=== PATIENT | male | born 1995 | race Caucasian/White ===

== ENCOUNTER 2017-11-24 15:58 | Emergency (ER) | payer OTHER ==
[2015-10-22 12:53] VITALS: Wt 72.6 kg
[~2017-11-24 15:58] MED LIST: CEP125L PO; FEXO1TAB60 PO; FLUO-202 PO; HYDR-4309 PO; IBUP-56 PO; LOR5 PO; LOR5/325 PO; MULT-1379 PO; TRAM-420 PO; TRAZ150T8 PO
--- NOTE | 2017-11-24 16:08 | ER Report ---
History and Physical Time Seen By MD: 16:08 Hx. of Stated Complaint: PT REPORTS SEVERE LLQ PAIN STARTING THIS MORNING, SPITTING UP MOUTHFULS OF BLOOD HPI/ROS CHIEF COMPLAINT: Hematemesis, left upper quadrant abdominal pain which started today HISTORY OF PRESENT ILLNESS: Patient is a 22-year-old male here with complaints of left upper and middle quadrant abdominal pain for the past as well as several episodes of hematemesis described as "mouthfuls of blood". Patient denies prior history of hematemesis, abdominal pain, nausea, vomiting. He denies taking other medications at this time and he also denies other medical problems. He does admit to having a hiatal hernia. Patient reports severe pain in the left upper quadrant abdomen. He is afebrile at time of evaluation, hemodynamically stable. REVIEW OF SYSTEMS: Constitutional: No fever, no chills. Eyes: No discharge. ENT: No sore throat. Cardiovascular: No chest pain, no palpitations. Respiratory: No cough, no shortness of breath. Gastrointestinal:+ left upper abdominal pain, + hematemesis. Genitourinary: No hematuria. Musculoskeletal: No back pain. Skin: No rashes. Neurological: No headache. Allergies: Coded Allergies: methylphenidate (Verified Allergy, Intermediate, NAUSEA, 07/23/16) Uncoded Allergies: SEASONAL ALLERGIES (Allergy, Mild, SINUS CONGESTION, 07/24/16) Home Meds Active Scripts Tramadol Hcl (TRAMADOL HCL) 50 Mg Tablet, 50 MG PO Q6H Y for PAIN, #12 TAB 0 Refills Prov:BIN MELÉNDEZ DO 11/24/17 Ondansetron (ZOFRAN ODT) 4 Mg Tab.rapdis, 4 MG PO Q6H Y for NAUSEA/VOMITING, # 20 TAB.[place] 0 Refills Prov:MELÉNDEZBIN S DO 18 Ondansetron (ONDANSETRON ODT) 4 Mg Tab.rapdis, 4 MG PO Q12H for 7 Days, #20 TAB Prov:BIN MELÉNDEZ S DO 18 Sucralfate (SUCRALFATE) 1 Gm Tablet, 1 GM PO Q6H for Nausea for 7 Days, #28 TAB Prov:BIN MELÉNDEZ S DO 18 Omeprazole Magnesium (PRILOSEC OTC) 20 Mg Tablet.dr, 1 TAB PO QDAY for 30 Days, #30 TAB Prov:BIN MELÉNDEZ DO 11/24/17 Tramadol Hcl (TRAMADOL HCL) 50 Mg Tablet, 1 TAB PO Q6H Y for PAIN, #20 MG TAKE ONE TO TWO TABLETS BY MOUTH EVERY FOUR TO SIX HOURS NEEDED Prov:ZACHERY HOBBS DO 07/23/16 Reported Medications Fexofenadine/Pseudoephedrine (DYLLAN-D 12 HOUR TABLET) 1 Each Tab.er.12h, 1 TAB PO BID Y for CONGESTION 07/24/16 Ibuprofen (IBUPROFEN) 200 Mg Tablet, 2 TAB PO PRN, TAB 07/24/16 Hx Smoking: No Smoking Status: Former Smoker Exposure to Second Hand Smoke?: No Hx Substance Use Disorder: Yes (weed) Hx Alcohol Use: Yes Constitutional Vital Sign - Last 24 Hours 11/24/17 11/24/17 11/24/17 11/24/17 15:58 16:03 16:04 16:13 Temp 98.4 Pulse ??? 95 88 Resp 16 B/P (MAP) 122/72 (89) 122/72 Pulse Ox 94 96 O2 Delivery Room Air 11/24/17 11/24/17 11/24/17 11/24/17 16:28 16:30 16:43 16:58 Pulse 87 87 ??? B/P (MAP) 114/71 (85) Pulse Ox 96 92 11/24/17 11/24/17 11/24/17 11/24/17 17:13 17:18 17:19 17:30 Pulse 67 65 B/P (MAP) 117/64 (81) 122/87 (99) Pulse Ox 99 100 11/24/17 11/24/17 17:33 17:48 Pulse 79 83 Pulse Ox 95 96 Physical Exam General Appearance: The patient is alert, has no immediate need for airway protection and no signs of toxicity. + moderate distress secondary to pain Eyes: Pupils equal and round no pallor or injection. ENT, Mouth: Mucous membranes are moist. Respiratory: There are no retractions, lungs are clear to auscultation. Cardiovascular: Regular rate and rhythm. Gastrointestinal: + TTP LUQ, voluntary guarding without distension, no masses Neurological: No focal deficits Skin: Warm and dry, no rashes. Musculoskeletal: Neck is supple non tender. Extremities are nontender, nonswollen and have full range of motion. DIFFERENTIAL DIAGNOSIS: After history and physical exam differential diagnosis was considered for abdominal pain including but not limited to appendicitis, cholecystitis, gastritis and urinary tract infection. Medical Decision Making Data Points Result Diagram: 11/24/17 1625 11/24/17 1625 Laboratory Hematology Test 11/24/17 16:25 11/24/17 17:29 Red Blood Count 5.17 M/uL (4.00-5.60) Mean Corpuscular Volume 88.4 fL (80.0-96.0) Mean Corpuscular Hemoglobin 31.4 pg (26.0-33.0) Mean Corpuscular Hemoglobin Concent 35.5 g/dL (32.0-36.0) Red Cell Distribution Width 13.3 % (11.5-14.5) Mean Platelet Volume 8.2 fL (7.2-11.1) Neutrophils (%) (Auto) 50.9 % (39.4-72.5) Lymphocytes (%) (Auto) 26.9 % (17.6-49.6) Monocytes (%) (Auto) 9.9 % (4.1-12.4) Eosinophils (%) (Auto) 11.3 % (0.4-6.7) Basophils (%) (Auto) 1.0 % (0.3-1.4) Nucleated RBC Relative Count (auto) 0.0 /100WBC Neutrophils # (Auto) 4.0 K/uL (2.0-7.4) Lymphocytes # (Auto) 2.1 K/uL (1.3-3.6) Monocytes # (Auto) 0.8 K/uL (0.3-1.0) Eosinophils # (Auto) 0.9 K/uL (0.0-0.5) Basophils # (Auto) 0.1 K/uL (0.0-0.1) Nucleated RBC Absolute Count (auto) 0.00 K/uL Peripheral Blood Smear Yes Y/N Prothrombin Time 14.1 seconds (12.0-14.4) Prothromb Time International Ratio 1.08 Activated Partial Thromboplast Time 29 seconds (23-35) Sodium Level 139 mmol/L (137-145) Potassium Level 3.5 mmol/L (3.5-5.0) Chloride Level 102 mmol/L (98-107) Carbon Dioxide Level 25 mmol/L (22-30) Blood Urea Nitrogen 15 mg/dl (9-21) Creatinine 1.10 mg/dl (0.66-1.25) Glomerular Filtration Rate Calc > 60.0 Random Glucose 86 mg/dl (75-110) Calcium Level 9.1 mg/dl (8.4-10.2) Total Bilirubin 0.9 mg/dl (0.2-1.3) Aspartate Amino Transf (AST/SGOT) 24 U/L (0-35) Alanine Aminotransferase (ALT/SGPT) 25 U/L (0-56) Alkaline Phosphatase 86 U/L (0-126) Total Protein 7.2 g/dl (6.3-8.2) Albumin 4.2 g/dl (3.5-5.0) Lipase 39 U/L (23-300) Urine Color Yellow Urine Clarity Clear Urine pH 6.0 pH (4.8-9.5) Urine Specific [place] 1.029 Urine Protein Negative mg/dL (NEGATIVE) Urine Glucose (UA) Negative mg/dL (NEGATIVE) Urine Ketones Negative mg/dL (NEGATIVE) Urine Blood Negative (NEGATIVE) Urine Nitrite Negative (NEGATIVE) Urine Bilirubin Negative (NEGATIVE) Urine Urobilinogen 2.0 mg/dL (0.2-1.9) Urine Leukocyte Esterase Negative (NEGATIVE) Urine RBC None /HPF (0-2/HPF) Urine WBC None /HPF (0-5/HPF) Urine Squamous Epithelial Cells Few /LPF (</=FEW) Urine Bacteria Negative /HPF (NONE-FEW) Urine Mucus Few /HPF (NONE-FEW) Chemistry Test 11/24/17 16:25 11/24/17 17:29 White Blood Count 7.8 k/uL (4.5-11.0) Red Blood Count 5.17 M/uL (4.00-5.60) Hemoglobin 16.2 g/dL (14.0-18.0) Hematocrit 45.7 % (42.0-52.0) Mean Corpuscular Volume 88.4 fL (80.0-96.0) Mean Corpuscular Hemoglobin 31.4 pg (26.0-33.0) Mean Corpuscular Hemoglobin Concent 35.5 g/dL (32.0-36.0) Red Cell Distribution Width 13.3 % (11.5-14.5) Platelet Count 204 K/uL (150-450) Mean Platelet Volume 8.2 fL (7.2-11.1) Neutrophils (%) (Auto) 50.9 % (39.4-72.5) Lymphocytes (%) (Auto) 26.9 % (17.6-49.6) Monocytes (%) (Auto) 9.9 % (4.1-12.4) Eosinophils (%) (Auto) 11.3 % (0.4-6.7) Basophils (%) (Auto) 1.0 % (0.3-1.4) Nucleated RBC Relative Count (auto) 0.0 /100WBC Neutrophils # (Auto) 4.0 K/uL (2.0-7.4) Lymphocytes # (Auto) 2.1 K/uL (1.3-3.6) Monocytes # (Auto) 0.8 K/uL (0.3-1.0) Eosinophils # (Auto) 0.9 K/uL (0.0-0.5) Basophils # (Auto) 0.1 K/uL (0.0-0.1) Nucleated RBC Absolute Count (auto) 0.00 K/uL Peripheral Blood Smear Yes Y/N Prothrombin Time 14.1 seconds (12.0-14.4) Prothromb Time International Ratio 1.08 Activated Partial Thromboplast Time 29 seconds (23-35) Glomerular Filtration Rate Calc > 60.0 Calcium Level 9.1 mg/dl (8.4-10.2) Total Bilirubin 0.9 mg/dl (0.2-1.3) Aspartate Amino Transf (AST/SGOT) 24 U/L (0-35) Alanine Aminotransferase (ALT/SGPT) 25 U/L (0-56) Alkaline Phosphatase 86 U/L (0-126) Total Protein 7.2 g/dl (6.3-8.2) Albumin 4.2 g/dl (3.5-5.0) Lipase 39 U/L (23-300) Urine Color Yellow Urine Clarity Clear Urine pH 6.0 pH (4.8-9.5) Urine Specific [place] 1.029 Urine Protein Negative mg/dL (NEGATIVE) Urine Glucose (UA) Negative mg/dL (NEGATIVE) Urine Ketones Negative mg/dL (NEGATIVE) Urine Blood Negative (NEGATIVE) Urine Nitrite Negative (NEGATIVE) Urine Bilirubin Negative (NEGATIVE) Urine Urobilinogen 2.0 mg/dL (0.2-1.9) Urine Leukocyte Esterase Negative (NEGATIVE) Urine RBC None /HPF (0-2/HPF) Urine WBC None /HPF (0-5/HPF) Urine Squamous Epithelial Cells Few /LPF (</=FEW) Urine Bacteria Negative /HPF (NONE-FEW) Urine Mucus Few /HPF (NONE-FEW) Coagulation Test 11/24/17 16:25 Prothrombin Time 14.1 seconds Prothromb Time International Ratio 1.08 Activated Partial Thromboplast Time 29 seconds Urinalysis Test 11/24/17 17:29 Urine Color Yellow Urine Clarity Clear Urine pH 6.0 pH (4.8-9.5) Urine Specific [place] 1.029 Urine Protein Negative mg/dL (NEGATIVE) Urine Glucose (UA) Negative mg/dL (NEGATIVE) Urine Ketones Negative mg/dL (NEGATIVE) Urine Blood Negative (NEGATIVE) Urine Nitrite Negative (NEGATIVE) Urine Bilirubin Negative (NEGATIVE) Urine Urobilinogen 2.0 mg/dL (0.2-1.9) Urine Leukocyte Esterase Negative (NEGATIVE) Urine RBC None /HPF (0-2/HPF) Urine WBC None /HPF (0-5/HPF) Urine Squamous Epithelial Cells Few /LPF (</=FEW) Urine Bacteria Negative /HPF (NONE-FEW) Urine Mucus Few /HPF (NONE-FEW) EKG/Imaging Imaging ACUTE ABDOMEN SERIES 3 VIEW Indication: ABD PAIN Comparison: Chest x-ray 03/28/2016 Findings: CHEST: Lungs are clear. Heart size and pulmonary vasculature are normal. ABDOMEN: Normal bowel gas pattern is seen. Silhouette of the liver spleen and kidneys are normal. Bones are unremarkable. Benign defect in the posterior elements of L5 is seen. IMPRESSION: 1. Clear lungs. 2. Normal abdomen radiograph. ED Course/Re-evaluation ED Course Patient is a 22-year-old male here with complaints of hematemesis, upper abdominal pain in the setting of a hiatal hernia.. He reportedly had an endoscopy over a year ago however developed worse abdominal pain starting within the last 24 hours and scant bleeding in his mouth. H&H were stable. Coag panel was unremarkable. Electrolytes and kidney function, lipase and liver function tests were unremarkable. Acute abdomen x-ray series showed no acute free air in the abdomen under the diaphragm making perforation less likely. Patient was treated with analgesia as well as pantoprazole. Is given prescription for omeprazole, sucralfate, Zofran, tramadol. Patient was advised to follow-up with Gen. surgery or gastroenterology for repeat endoscopy. Patient agreed to return promptly if he develops worsening pain, fevers, increased bleeding. Patient remained hemodynamically stable throughout course of treatment. Decision to Disposition Date: Nov 24, 2017 Decision to Disposition Time: 17:46 Depart Departure Latest Vital Signs Vital Signs Date Time Temp Pulse Resp B/P (MAP) Pulse Ox O2 Delivery O2 Flow Rate FiO2 11/24/17 17:48 83 96 11/24/17 17:30 122/87 (99) 11/24/17 16:04 98.4 16 Room Air Impression: Primary Impression: Gastritis Additional Impression: GERD (gastroesophageal reflux disease) Condition: Improved Disposition: HOME OR SELF-CARE Referrals: NANO FREEMAN MD New Scripts Tramadol Hcl (TRAMADOL HCL) 50 Mg Tablet 50 MG PO Q6H Y for PAIN, #12 TAB 0 Refills Prov: BIN MELÉNDEZ DO 11/24/17 Ondansetron (ZOFRAN ODT) 4 Mg Tab.rapdis 4 MG PO Q6H Y for NAUSEA/VOMITING, #20 TAB.[place] 0 Refills Prov: BIN MELÉNDEZ DO 11/24/17 Ondansetron (ONDANSETRON ODT) 4 Mg Tab.rapdis 4 MG PO Q12H for 7 Days, #20 TAB Prov: BIN MELÉNDEZ DO 11/24/17 Sucralfate (SUCRALFATE) 1 Gm Tablet 1 GM PO Q6H for Nausea for 7 Days, #28 TAB Prov: BIN MELÉNDEZ DO 11/24/17 Omeprazole Magnesium (PRILOSEC OTC) 20 Mg Tablet.dr 1 TAB PO QDAY for 30 Days, #30 TAB Prov: BIN MELÉNDEZ DO 11/24/17 Patient Instructions: Gastritis (ED), Omeprazole (By mouth), Ondansetron (By mouth, Into the mouth), Sucralfate (By mouth), Tramadol (By mouth) Additional Instructions: You may take 1 tablet of Zofran every 6 hours as needed for nausea. You may take 1 tablet of omeprazole 20 mg every morning for 1 month for treatment of gastritis. You may take 1 tablet of sucralfate every 6 hours as needed for acid reflux. A referral has been placed for surgery in order to evaluate for possible gastric ulcers. Please call to make an appointment. Please follow-up with her family doctor in the next week. Please return promptly if he started to develop worsening pain, difficulty swallowing, increased bleeding. Problem Qualifiers BIN MELÉNDEZ DO Nov 24, 2017 16:08
[2017-11-24] MEDS ORDERED: NS(*) 0.9% 1000 ML BAG 1,000 ML IV ONE (16:18)
[2017-11-24] MEDS ORDERED: ONDANSETRON 4 MG/2 ML VIAL IVP ONE (16:20)
[2017-11-24] MEDS ORDERED: MAG HYD/AL HYD/SIMETH 30ML UDC PO ONE (16:20)
[2017-11-24] MEDS ORDERED: PANTOPRAZOLE SOD 40 MG IV VIAL IVP ONE (16:20)
[2017-11-24] MEDS ORDERED: LIDOCAINE 2% VISC SLN 15ML UDC PO ONE (16:20)
[2017-11-24] MEDS ORDERED: ATRO/SCOPOL/HYOSCY/PB 5 ML ELX PO ONE (16:20)
[2017-11-24] MEDS ORDERED: fentaNYL CITR 100 MCG/2 ML AMP IVP ONE (16:20)
[2017-11-24 16:32] LABS: PLATELET COUNT, AUTOMATED 204 K/uL (150-450)
[2017-11-24 16:42] LABS: INR 1.08
[2017-11-24 17:30] VITALS: BP 122/87
[2017-11-24] MEDS ORDERED: SUCR1TAB51 PO (17:41)
[2017-11-24] MEDS ORDERED: ONDA4TAB PO (17:41)
[2017-11-24] MEDS ORDERED: OMEP-218 PO (17:41)
[2017-11-24] MEDS ORDERED: TRAM-420 PO (17:41)
[2017-11-24] MEDS ORDERED: ONDA4TAB9 PO (17:41)
--- NOTE | 2017-11-24 17:50 | RADIOLOGY IMAGING REPORT ---
FACILITY: [facility] - [place] PATIENT NAME: Luigi Javier : 1995 MR: [id number] V: [id number] EXAM DATE: ORDERING PHYSICIAN: BIN MELÉNDEZ TECHNOLOGIST: Location: [facility] [place] Patient: Luigi Javier : 1995 Visit/Account:[id number] Date of Sevice: 11/24/2017 ACUTE ABDOMEN SERIES 3 VIEW Indication: ABD PAIN Comparison: Chest x-ray 03/28/2016 Findings: CHEST: Lungs are clear. Heart size and pulmonary vasculature are normal. ABDOMEN: Normal bowel gas pattern is seen. Silhouette of the liver spleen and kidneys are normal. Bon es are unremarkable. Benign defect in the posterior elements of L5 is seen. IMPRESSION: 1. Clear lungs. 2. Normal abdomen radiograph. Report Dictated By: Yuval Camacho at 11/24/2017 5:44 PM Report E-Signed By: Yuval Camacho at 11/24/2017 5:46 PM WSN:[id number]
== END 2017-11-24 17:55 | disposition home or self-care (01) ==
LOC: ER 16:07
DX: K29.70 Gastritis, unspecified, without bleeding (principal); K21.9 Gastro-esophageal reflux disease without esophagitis
CPT/HCPCS: 74022; 81001; 83690; 85025; 85610; 85730; 86850; 86900; 86901; 96361; 96374; 96375; 99284; C9113; J2405; J3010; J7030; 82040; 82247; 82310; 82374; 82435; 82565; 82947; 84075; 84132; 84155; 84295; 84450; 84460; 84520

== ENCOUNTER 2018-05-10 18:26 | Emergency (ER) | payer OTHER ==
[2015-10-22 12:53] VITALS: Wt 72.6 kg
[~2018-05-10 18:26] MED LIST changes: -HYDR-4309 PO; +HYDR-653 PO; +OMEP-218 PO; +ONDA4TAB PO; +ONDA4TAB9 PO; +SUCR1TAB51 PO
--- NOTE | 2018-05-10 18:31 | ER Report ---
History and Physical Time Seen By MD: 18:32 HPI/ROS CHIEF COMPLAINT: Chest pain HISTORY OF PRESENT ILLNESS: This is a 22-year-old male who presents to the emergency department for chest pain. Patient states that last night while sitting watching television he developed anterior chest pain. The pain continued throughout the night and today, this afternoon about 20 minutes prior to arrival he got up the pain was so intense that he collapsed to the floor, did not lose consciousness. Subsequently came to the ER for further evaluation. Patient is clutching his chest and the exam room. Does not appear to be gasping for air. Denies nausea or vomiting. No fevers or chills. No rashes, no headaches. REVIEW OF SYSTEMS: Constitutional: No fever, no chills. Eyes: No discharge. ENT: No sore throat. Cardiovascular: As above. Respiratory: No cough, no shortness of breath. Gastrointestinal: No abdominal pain, no vomiting. Genitourinary: No hematuria. Musculoskeletal: No back pain. Skin: No rashes. Neurological: No headache. Allergies: Coded Allergies: methylphenidate (Verified Allergy, Intermediate, NAUSEA, 07/23/16) metoclopramide (Verified Allergy, Unknown, 12/03/17) Uncoded Allergies: SEASONAL ALLERGIES (Allergy, Mild, SINUS CONGESTION, 07/24/16) Home Meds Active Scripts Ondansetron (ONDANSETRON ODT) 4 Mg Tab.rapdis, 4 MG PO Q12H for 7 Days, #20 TAB Prov:BIN MELÉNDEZ DO 11/24/17 Omeprazole Magnesium (PRILOSEC OTC) 20 Mg Tablet.dr, 1 TAB PO QDAY for 30 Days, #30 TAB Prov:BIN MELÉNDEZ DO 11/24/17 Reported Medications Fexofenadine/Pseudoephedrine (DYLLAN-D 12 HOUR TABLET) 1 Each Tab.er.12h, 1 TAB PO BID PRN for CONGESTION 07/24/16 Ibuprofen (IBUPROFEN) 200 Mg Tablet, 2 TAB PO PRN, TAB 07/24/16 Discontinued Scripts Sucralfate (SUCRALFATE) 1 Gm Tablet, 1 GM PO QID for Nausea for 7 Days, #100 TAB 0 Refills Prov:NANO FREEMAN MD 12/03/17 Tramadol Hcl (TRAMADOL HCL) 50 Mg Tablet, 50 MG PO Q6H PRN for PAIN, #12 TAB 0 Refills Prov:BIN MELÉNDEZ DO 11/24/17 Ondansetron (ZOFRAN ODT) 4 Mg Tab.rapdis, 4 MG PO Q6H PRN for NAUSEA/VOMITING, #20 TAB.[place] 0 Refills Prov:BIN MELÉNDEZ DO 11/24/17 Past Medical/Surgical History The patient has a past medical and surgical history of chest pain, shortness of breath, ulcers, right arm fracture, distal marijuana occasionally, depression, pectus excavatum, suicide attempt. Reviewed Nurses Notes: Yes Hx Smoking: No Smoking Status: Former Smoker Exposure to Second Hand Smoke?: No Hx Substance Use Disorder: Yes (weed) Hx Alcohol Use: Yes (BEERS ON WEEKENDS) Constitutional Vital Sign - Last 24 Hours 05/10/18 05/10/18 05/10/18 05/10/18 18:32 18:37 18:41 18:52 Temp 98.8 Pulse 88 84 Resp 14 12 B/P (MAP) 114/91 (99) 114/95 (101) Pulse Ox 97 97 O2 Delivery Room Air 05/10/18 05/10/18 05/10/18 05/10/18 18:56 19:00 19:11 19:26 Pulse 80 81 71 Resp 11 16 15 B/P (MAP) 114/62 (79) Pulse Ox 95 95 96 05/10/18 05/10/18 05/10/18 05/10/18 19:30 19:41 19:56 20:00 Pulse 88 80 Resp 33 11 B/P (MAP) 85/70 (75) 110/77 (88) Pulse Ox 94 93 05/10/18 05/10/18 05/10/18 20:11 20:13 20:13 Pulse 80 64 Resp 12 17 Pulse Ox 94 94 O2 Delivery Room Air Physical Exam General Appearance: The patient is alert, has no immediate need for airway protection and no signs of toxicity. Eyes: Pupils equal and round no pallor or injection. ENT, Mouth: Mucous membranes are moist. Respiratory: There are no retractions, diminished lung sounds in the right lower base otherwise no other adventitious lung sounds. Cardiovascular: Regular rate and rhythm, no murmurs, clicks or rubs. Gastrointestinal: Abdomen is soft and non tender, no masses, bowel sounds normal. Neurological: Alert and oriented 4. Moving all extended period following all commands. No focal neuro deficits. Skin: Warm and dry, no rashes. Musculoskeletal: Neck is supple non tender. Increased pain when the anterior chest is palpated. No crepitus. Extremities are nontender, nonswollen and have full range of motion. DIFFERENTIAL DIAGNOSIS: After history and physical exam differential diagnosis was considered for chest pain including but not limited to myocardial ischemia, pericarditis pulmonary embolus, chest wall pain, pleural inflammation and pulmonary infectious causes. Medical Decision Making Data Points Result Diagram: 05/10/185 05/10/185 Laboratory Hematology Test 05/10/18 18:35 Red Blood Count 5.95 M/uL (4.00-5.60) Mean Corpuscular Volume 90.8 fL (80.0-96.0) Mean Corpuscular Hemoglobin 31.8 pg (26.0-33.0) Mean Corpuscular Hemoglobin Concent 35.1 g/dL (32.0-36.0) Red Cell Distribution Width 13.1 % (11.5-14.5) Mean Platelet Volume 8.3 fL (7.2-11.1) Neutrophils (%) (Auto) 68.4 % (39.4-72.5) Lymphocytes (%) (Auto) 20.6 % (17.6-49.6) Monocytes (%) (Auto) 7.2 % (4.1-12.4) Eosinophils (%) (Auto) 3.1 % (0.4-6.7) Basophils (%) (Auto) 0.7 % (0.3-1.4) Nucleated RBC Relative Count (auto) 0.1 /100WBC Neutrophils # (Auto) 4.9 K/uL (2.0-7.4) Lymphocytes # (Auto) 1.5 K/uL (1.3-3.6) Monocytes # (Auto) 0.5 K/uL (0.3-1.0) Eosinophils # (Auto) 0.2 K/uL (0.0-0.5) Basophils # (Auto) 0.0 K/uL (0.0-0.1) Nucleated RBC Absolute Count (auto) 0.01 K/uL D-Dimer Quantitative (PE/DVT) < 0.27 ug/ml (0-0.50) Sodium Level 141 mmol/L (137-145) Potassium Level 4.4 mmol/L (3.5-5.0) Chloride Level 103 mmol/L (98-107) Carbon Dioxide Level 25 mmol/L (22-30) Blood Urea Nitrogen 14 mg/dl (9-21) Creatinine 1.00 mg/dl (0.66-1.25) Glomerular Filtration Rate Calc > 60.0 Random Glucose 92 mg/dl (75-110) Calcium Level 9.7 mg/dl (8.4-10.2) Total Bilirubin 1.8 mg/dl (0.2-1.3) Aspartate Amino Transf (AST/SGOT) 32 U/L (0-35) Alanine Aminotransferase (ALT/SGPT) 13 U/L (0-56) Alkaline Phosphatase 89 U/L (0-126) Troponin I < 0.012 ng/ml Total Protein 8.5 g/dl (6.3-8.2) Albumin 4.6 g/dl (3.5-5.0) Chemistry Test 05/10/18 18:35 White Blood Count 7.2 k/uL (4.5-11.0) Red Blood Count 5.95 M/uL (4.00-5.60) Hemoglobin 18.9 g/dL (14.0-18.0) Hematocrit 54.0 % (42.0-52.0) Mean Corpuscular Volume 90.8 fL (80.0-96.0) Mean Corpuscular Hemoglobin 31.8 pg (26.0-33.0) Mean Corpuscular Hemoglobin Concent 35.1 g/dL (32.0-36.0) Red Cell Distribution Width 13.1 % (11.5-14.5) Platelet Count 241 K/uL (150-450) Mean Platelet Volume 8.3 fL (7.2-11.1) Neutrophils (%) (Auto) 68.4 % (39.4-72.5) Lymphocytes (%) (Auto) 20.6 % (17.6-49.6) Monocytes (%) (Auto) 7.2 % (4.1-12.4) Eosinophils (%) (Auto) 3.1 % (0.4-6.7) Basophils (%) (Auto) 0.7 % (0.3-1.4) Nucleated RBC Relative Count (auto) 0.1 /100WBC Neutrophils # (Auto) 4.9 K/uL (2.0-7.4) Lymphocytes # (Auto) 1.5 K/uL (1.3-3.6) Monocytes # (Auto) 0.5 K/uL (0.3-1.0) Eosinophils # (Auto) 0.2 K/uL (0.0-0.5) Basophils # (Auto) 0.0 K/uL (0.0-0.1) Nucleated RBC Absolute Count (auto) 0.01 K/uL D-Dimer Quantitative (PE/DVT) < 0.27 ug/ml (0-0.50) Glomerular Filtration Rate Calc > 60.0 Calcium Level 9.7 mg/dl (8.4-10.2) Total Bilirubin 1.8 mg/dl (0.2-1.3) Aspartate Amino Transf (AST/SGOT) 32 U/L (0-35) Alanine Aminotransferase (ALT/SGPT) 13 U/L (0-56) Alkaline Phosphatase 89 U/L (0-126) Troponin I < 0.012 ng/ml Total Protein 8.5 g/dl (6.3-8.2) Albumin 4.6 g/dl (3.5-5.0) Coagulation Test 05/10/18 18:35 D-Dimer Quantitative (PE/DVT) < 0.27 ug/ml EKG/Imaging EKG Interpretation 12 lead EKG: Time of EKG 1836. Rhythm: Normal sinus rhythm, ventricular rate 88 bpm. [place]: [place] QRS: normal ST segments: No ST depression or elevation identified, incomplete right bundle branch block, There are no significant changes from the 07/23/2016 EKG other than amplitude in V2, V3. Imaging EXAMINATION: Chest 2 Views HISTORY: Chest pain. COMPARISON: To 2016. FINDINGS: The lungs are clear. No focal consolidation or pleural fluid. No pneumothorax. Normal cardiomediastinal silhouette, with normal heart size and pulmonary vascularity. No acute osseous findings. Pectus excavatum. IMPRESSION: No evidence of acute cardiopulmonary disease. Report Dictated By: Maicol Rodriguez MD at 05/10/2018 7:27 PM Report E-Signed By: Maicol Rodriguez MD at 05/10/2018 7:28 PM WSN:[id number] ED Course/Re-evaluation Clinical Indication for ER IV: Hydration, IV Access ED Course The patient was admitted to room. A history and physical were obtained. Differential diagnoses were considered. An IV was started. A CBC, CMP, troponin and d-dimer were obtained. CBC showing H&H 18.9 and 54.0, otherwise unremarkable. Negative troponin, negative d-dimer. Two-view chest x-ray negative for any acute cardiopulmonary process. As the pain is been continuous since last night did not repeat a troponin. Patient was given 324 mg chewable aspirin, he states he feels better after this. Patient was also given a DuoNeb, patient states he does feel improved aeration after the treatment. I did review the EKG, laboratory studies and chest x-ray results with the patient and his mother. I did talk to them about practice extubate him, and my concern for other connective tissue diseases. I did recommend that the patient establishes with a primary care provider for follow-up within the next 1-2 weeks. Patient expressed understanding and states he will chart a follow-up as recommended. I did also encourage the patient's drink plenty of water and eat meals regularly as he has not been doing so recently. No other questions or concerns at this time and discharged home. I also believe that the coughing to the floor was secondary to the intense pain that he was experiencing at the time. Decision to Disposition Date: May 10, 2018 Decision to Disposition Time: 20:36 Depart Departure Latest Vital Signs Vital Signs Date Time Temp Pulse Resp B/P (MAP) Pulse Ox O2 Delivery O2 Flow Rate FiO2 05/10/18 20:13 64 17 05/10/18 20:13 94 Room Air 05/10/18 20:00 110/77 (88) 05/10/18 18:32 98.8 Impression: Primary Impression: Chest pain of unknown etiology Additional Impression: Pectus excavatum Condition: Improved Disposition: HOME OR SELF-CARE Patient Instructions: Chest Pain (ED), Pleurisy (ED) Additional Instructions: There were no concerning finding noted on your blood work, EKG or chest xray. I do recommend establishing with a primary care provider within 1-2 weeks for reevaluation and annual follow up. Be sure to drink plenty of water. Get plenty of rest. Take Ibuprofen or Tylenol as needed for pain. Return to the ED for any other concerns or worsening symptoms. Problem Qualifiers ELIS CORONA [employer]-BC May 10, 2018 18:31
[2018-05-10] MEDS ORDERED: NS(*) 0.9% 1000 ML BAG 1,000 ML IV ONE (18:35)
[2018-05-10] MEDS ORDERED: ASPIRIN 81 MG CHEW PO ONE (18:35)
--- NOTE | 2018-05-10 18:41 | EKG ---
FACILITY: [facility] - [place] PATIENT NAME: NICK ARMIJO : [id number] MR: [id number] V: [id number] EXAM DATE: ORDERING PHYSICIAN: ELIS CORONA TECHNOLOGIST: Test Reason : chest pain Blood Pressure : / mmHG Vent. Rate : 088 BPM Atrial Rate : 088 BPM P-R Int : 152 ms QRS Dur : 106 ms QT Int : 356 ms P-R-T Axes : 076 229 025 degrees QTc Int : 430 ms Normal sinus rhythm with sinus arrhythmia Right superior axis deviation Incomplete right bundle branch block Abnormal ECG When compared with ECG of 23-JUL-2016 20:26, Non-specific change in ST segment in Anterior leads Confirmed by Lambert Brown ([id number] on 05/10/2018 11:02:34 PM Referred By: Confirmed By:Lambert Diego
[2018-05-10 18:46] LABS: PLATELET COUNT, AUTOMATED 241 K/uL (150-450)
--- NOTE | 2018-05-10 19:32 | RADIOLOGY IMAGING REPORT ---
FACILITY: [facility] PATIENT NAME: Luigi Javier : 1995 MR: [id number] V: [id number] EXAM DATE: ORDERING PHYSICIAN: ELIS CORONA TECHNOLOGIST: Location: [facility] Patient: Luigi Javier : 1995 Visit/Account:[id number] Date of Sevice: 05/10/2018 EXAMINATION: Chest 2 Views HISTORY: Chest pain. COMPARISON: To 2016. FINDINGS: The lungs are clear. No focal consolidation or pleural fluid. No pneumothorax. Normal cardiomediastinal silhouette, with normal heart size and pulmonary vascularity. No acute osseous findings. Pectus excavatum. IMPRESSION: No evidence of acute cardiopulmonary disease. Report Dictated By: Maicol Rodriguez MD at 05/10/2018 7:27 PM Report E-Signed By: Maicol Rodriguez MD at 05/10/2018 7:28 PM WSN:[id number]
[2018-05-10] MEDS ORDERED: ALBUTEROL/IPRATROPIUM 3 ML NEB NEB ONE (19:55)
[2018-05-10 20:44] VITALS: BP 116/75
== END 2018-05-10 20:50 | disposition home or self-care (01) ==
LOC: ER 18:40
DX: R07.9 Chest pain, unspecified (principal); Q67.6 Pectus excavatum; I45.10 Unspecified right bundle-branch block; R94.31 Abnormal electrocardiogram [ECG] [EKG]; I49.9 Cardiac arrhythmia, unspecified
CPT/HCPCS: 71046; 84484; 85025; 85379; 93005; 94640; 96360; 99284; J7030; J7620; 82040; 82247; 82310; 82374; 82435; 82565; 82947; 84075; 84132; 84155; 84295; 84450; 84460; 84520

== ENCOUNTER 2018-05-27 07:39 | Inpatient (IN) | payer OTHER ==
[2015-10-22 12:53] VITALS: Ht 188 cm; Wt 72.6 kg
[~2018-05-27] VITALS: Ht 188 cm; Wt 72.6 kg
[2018-05-27] MEDS ORDERED: MAG HYD/AL HYD/SIMETH 30ML UDC PO PRN (07:50)
[2018-05-27] MEDS: MULTIVITAMINS TAB PO SCH (08:24)
--- NOTE | 2018-05-27 09:40 | EKG ---
FACILITY: [facility] PATIENT NAME: NICK ARMIJO : [id number] MR: [id number] V: [id number] EXAM DATE: ORDERING PHYSICIAN: SYD CIFUENTES TECHNOLOGIST: Test Reason : Blood Pressure : / mmHG Vent. Rate : 062 BPM Atrial Rate : 062 BPM P-R Int : 182 ms QRS Dur : 116 ms QT Int : 404 ms P-R-T Axes : 037 -49 035 degrees QTc Int : 410 ms Normal sinus rhythm Left anterior fascicular block vs incomplete RBBB Abnormal ECG When compared with ECG of 10-MAY-2018 18:36, No significant change was found Confirmed by TOBIN MARTINEZ ([id number]) on 05/27/2018 4:46:17 PM Referred By: Confirmed By:TOBIN MARTINEZ
[2018-05-27 22:09] VITALS: BP 112/58
[2018-05-28 05:01] VITALS: BP 121/60
[2018-05-28] MEDS: MULTIVITAMINS TAB PO SCH (07:55)
--- NOTE | 2018-05-28 09:18 | SCHAAF H&P ---
DATE OF ADMISSION: May 27, 2018 ATTENDING PHYSICIAN Neno Cavazos MD The patient was seen on the a.m. of May 27, 2018 at approximately 12:00 hours for note concerning this dictation. PRESENTING PROBLEM, CHIEF COMPLAINT Patient making suicidal threats and gestures. HISTORY OF PRESENT ILLNESS This is an emergency detained 22-year-old male who was texting pictures of himself with a firearm indicating intent to commit suicide. The patient was sending these pictures to others who then contacted his sister who contacted police. The patient was brought in under emergency detainment. The patient had mild alcohol intoxication and cocaine in his system. The patient reports specific stressors in his life are drug related. He is also under under a recent DUI charge where it caused him to lose his license. 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 The patient reports continued use of alcohol and cocaine. In the past the patient has had significant use of methamphetamine as well. The patient was last admitted to the unit under very similar circumstances in 2016 on two occasions. The patient unable to specifically given any symptoms of psychiatric concern at this time in the absence of drug abuse on the unit. The patient is so far very cooperative on the unit. The patient was admitted without incident. MENTAL HEALTH HISTORY This is the third admission in total for this patient, again the last two were in 2016 under very similar circumstances. The patient reports he is not currently going to [facility]. In the past he has been seeing an outpatient therapist for court ordered anger management. The patient is attempting to reinstitute outpatient therapy now which appears to be in an effort to appease the courts over recent DUI. The patient denies any suicide attempts, but reports the events leading to last nights admission and previous admissions are "bad thoughts". FAMILY PSYCHIATRIC HISTORY The patient reports no known drug abuse in the family other than a cousin who may be alcoholic and no suicides in the family and no other history of family mental illness. A previous note does indicate that the patient had in the past reported two family members have completed suicide in the past. PAST MEDICAL HISTORY The patient broke his right arm and his wrist in the past. He says this has healed without any negative sequela. The patient has been evaluated for chest pain. This may be related to stimulant abuse in the past. He has no known allergies and is not currently on any treatment. SOCIAL HISTORY The patient was born in [place] Parents were at the time his . He reports his parents overall had a good relationship on previous admissions. He has three sisters, all older than he. The patient reports a fair relationship with one of them. The patient is a high school graduate. He has not had any college. The patient is heterosexual, never , no children. No significant other now. 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 The patient denies any physical, emotional, or sexual abuse while growing up. LEGAL HISTORY The patient has been caught driving on a suspended license in the past as well as having two DUIs now, one continues to be under evaluation and awaiting court progression. SUBSTANCE ABUSE HISTORY The patient admits to smoking cannabis in the past, infrequently now. The patient reports drug of choice is alcohol and he seems also to prefer stimulants including cocaine and methamphetamine at times. The patient again as on previous admissions states he would like to stop. PHYSICAL EXAMINATION Please see emergency room note. Notable for emergency detained 22-year-old male, depressed appearing. Vital signs at the time of admission: Temperature 98.7, pulse 91, respiratory rate 16, blood pressure 112/79 and pulse oximetry 94% on room air. The patient in no acute medical distress. LABORATORY DATA CBC notably within normal limits and CMP in normal limits as well. No elevations in AST or ALT. TSH 4.42 and normal limits. Urinalysis unremarkable. Toxicology screen positive for a serum alcohol level of 61 and positive for cocaine. MENTAL STATUS EXAMINATION GENERAL APPEARANCE, BEHAVIOR AND ATTITUDE: This is calm, somewhat depressed appearing, psychomotor retarded 22-year-old male, making fair to good eye contact at times. No periods of tearfulness. No bizarre mannerisms or ticks. The patient cooperative overall. SPEECH: Within normal limits. Regular rate, rhythm, volume and tone. MOOD: Described as depressed at times. AFFECT: Minimally constricted and mood-congruent overall. THOUGHT PROCESSES: No loose associations or flight of ideas could be detected. The patient cooperative with care and goal-directed in that he may want to enter further outpatient care. THOUGHT CONTENT: Free of auditory or visual hallucinations, ideas of reference, thought broadcastings, delusions, obsessions or compulsions. The patient vaguely referring to gross displays of suicidal gestures prior to being emergency detained as "bad thoughts", denying homicidal ideations. SENSORIUM: Clear. COGNITION: Alert and oriented to person, place, time and situation. MEMORY: Immediate, recent and remote estimated intact. INTELLIGENCE: Average, based on interview and previous knowledge of this patient. INSIGHT AND JUDGMENT: Some underlying maladaptive personality traits, possibly antisocial in nature are likely present combine with patient's substance abuse. Chronic substance abuse impairs his insight and judgement. ASSESSMENT This is a so far cooperative 22-year-old male who remains here under emergency detainment. The patient making gross suicidal gestures while under the influence of alcohol and illicit substance as he has done in the past. At this time, will continue to evaluate. Will treat any alcohol withdrawal to completion. Will consider medications that could improve patient's mood in the absence of significant drug use and will look at ways to encourage patient strongly to abstain and continue treatment on an outpatient basis with court direction. DIAGNOSES 1. Stimulant intoxication. 2. Stimulant use disorder, severe cocaine. 3. History of methamphetamine use as well. 4. Alcohol use disorder, moderate to severe. 5. Substance induced mood disorder. 6. Rule out persisting depressive disorder. 7. Social, legal, employment, and financial stressors related to substance use. PLAN 1. Will admit to the unit. 2. Necessary precautions will be implemented. 3. The patient will participate in individual and group therapy. 4. Medications may be prescribed in an attempt to off-set absence of alcohol and cocaine. 5. Collateral information to be obtained as necessary. 6. Estimated length of stay unknown at this time. The patient under an emergency detainment. Will consider eliciting further court direction to encourage sobriety upon departure. MONIED
--- NOTE | 2018-05-28 12:24 | [facility] Progress Note ---
[facility] Subject[facility] Notes Subjective Patient denies suicidality today, after recently posting pictures with firearm suggesting suicidal thoughts which he now denies. Patient compliant with treatment on the unit, and indicates a desire to abstain upon departure, and agrees to enter IOP. Will see if the courts could initiate a contract to have patient agree to IOP. Patient denies any other concerns today, will plan for discharge tomorrow towards end of emergency detainment. Suicidal Ideation: None Homicidal Ideation: None [facility] - Objective Physical Exam Vital Signs Vital Signs Date Time Temp Pulse Resp B/P (MAP) Pulse Ox O2 Delivery O2 Flow Rate FiO2 05/28/18 05:01 99.0 59 15 121/60 (80) 94 Room Air Muscle Strength and Tone: WNL Gait and Station: Steady [facility] Medications Reviewed: Side Effects, Benefits of Medication, Risks Allergies Reviewed: Yes Mental Status Exam General Appearance: Casual, Well Groomed, Good Eye Contact, Cooperative, Polite, Good Interaction; No Unkept, No Tearful, No Psychomotor Agitation, No Psychomotor Retardation, No Bizarre Mannerisms, No Tics Speech: Clear, Spontaneous, Normal Rate, Normal Rhythm, Normal Volume, Normal Tone Mood: Euthymic (states good today) Affect: Calm, Neutral; No Tearful, No Anxious, No Agitated Thought Process: Organized, Logical, Goal Directed; No Loose Associations, No Flight of Ideas Thought Content: No Suicidal Ideation, No Homicidal Ideation, No Delusions, No Auditory Halllucinations, No Visual Hallucinations, No Thought Broadcasting, No Ideas of Reference, No Obsessions, No Compulsions Sensorium: Clear Cognition: Alert & Oriented-Person, Alert & Oriented-Place, Alert & Oriented- Time, [id number] Memory: Immediate, Recent, Remote Intelligence: Average Insight Judgment: Poor (improving in absence of drug and alcohol use. antisocial traits likely underlying. ) [facility] Assessment and Plan [id number] Encounter Date: May 28, 2018 [id number] Encounter Time: 11:00 [facility] Plan: Necessary Precautions, Individual/Group Therapy, Admin/Titrate Meds, Educate Patient Tobacco Medications: Bupropion (Wellbutrin) Multpiple Antipsychotics Used: No Problems: (1) Stimulant use disorder Optional Permanent Comment: cocaine, methamphetamine. Last Edited By: Syd Cifuentes on May 28, 2018 12:24 Status: Chronic (2) Substance induced mood disorder Status: Acute (3) Alcohol use disorder, severe, in controlled environment Status: Chronic Condition 1. continue treatment. 2. likely discharge tomorrow. SYD CIFUENTES MD May 28, 2018 12:24
[2018-05-29] MEDS: MULTIVITAMINS TAB PO SCH (08:21)
[2018-05-29] MEDS ORDERED: MULT-1379 PO (08:53)
[2018-05-29] MEDS ORDERED: OMEG1CAP35 PO (08:54)
--- NOTE | 2018-05-29 23:26 | SCHAAF DISCHARGE ---
DATE OF ADMISSION: May 27, 2018 DATE OF DISCHARGE: May 29, 2018 ATTENDING PHYSICIAN Neno Cavazos MD Patient was seen at approximately 0840 hours on 29 May 2018 for note concerning this dictation. FINAL DIAGNOSES 1. Stimulant use disorder, severe, cocaine, with history of methamphetamine use. 2. Alcohol use disorder, severe. 3. Substance-induced mood disorder, resolved. 4. Social, legal, employment, and financial stressors related to substance use. 5. Patient having supportive family. REASON FOR ADMISSION This is a 22-year-old male who has been admitted here previously under similar circumstances as recently as 2016. Please see History and Physical for further details. Patient admitted under an emergency detainment after making suicidal gesture under the influence of stimulants and alcohol. This is, again, very similar in presentation to previous admissions on two occasions here in 2016. Patient, again, emergency detained, very cooperative with admission process, and found to be under the influence of cocaine and alcohol. Patient overall admitted without incident. Patient did take a somewhat active role in his treatment. Met with parents. Patient stating he would like to stop using. Patient is noted to be under significant legal concerns already stemming from recent DUI. Patient's mood continued to improve on the unit in the absence of substance use. Patient adamantly denying suicidal thoughts or intentions. Patient engaging in no parasuicidal behaviors. Patient met with cafeteria aide who were able to have the patient under legal contract to continue to abstain from all substances and go to supportive outpatient therapy. Patient agreed. Emergency detainment , and patient was discharged to go home. PHYSICAL EXAMINATION Please see emergency room note. Notable for: GENERAL: A 22-year-old male in no acute medical distress. VITAL SIGNS: Vital signs at the time of admission, temperature 98.7, pulse 91, respiratory rate 16, blood pressure 112/79, pulse oximetry 94% on room air. At time of discharge from [facility] Unit, vital signs showed temperature 99.0, pulse 59, respiratory rate 15, blood pressure 121/60, and pulse oximetry 94% on room air. LABORATORY DATA CBC unremarkable at time of admission. CMP unremarkable. TSH 4.42. Urinalysis unremarkable. Toxicology screen positive for cocaine, negative for other substances of abuse. Serum alcohol level of 61 upon admission. MENTAL STATUS EXAMINATION AT TIME OF DISCHARGE GENERAL APPEARANCE, BEHAVIOR, AND ATTITUDE: This is a 22-year-old male, appropriately groomed, making good eye contact. No periods of tearfulness. No bizarre mannerisms or tics. No psychomotor agitation or retardation. Patient making good eye contact, interacting well with this provider, other treatment team staff, and parents in room. SPEECH: Within normal limits. Regular rate, rhythm, volume, and tone. MOOD: Described as improved and good. AFFECT: Full at times and overall mood congruent. THOUGHT PROCESSES: Logical, goal directed. No loose associations or flight of ideas. THOUGHT CONTENT: Free of auditory or visual hallucinations, ideas of reference, thought broadcastings, delusions, obsessions, compulsions. Patient adamantly denying suicidal or homicidal ideation. SENSORIUM: Clear. COGNITION: Alert and oriented to person, place, time, and situation. MEMORY: Immediate, recent, and remote was estimated intact. INTELLIGENCE: Average based on interview. INSIGHT AND JUDGMENT: Considered grossly intact in the absence of substance use. RESULTS OF TESTING IMAGING: None. LABORATORY DATA: See above. CONSULTATIONS None. TREATMENT Patient received no medications. He did participate in individual and group therapy. HOSPITAL COURSE Patient remained very pleasant, calm, and cooperative throughout stay under an emergency detainment on the unit. Patient agreed to stop using illicit stimulants and any other illicit substances or alcohol. Patient was notified of the negative effects potentially induced by cocaine, and patient was open to discussion. No parasuicidal behaviors were seen. Patient discharged to home. CONDITION OF PATIENT ON DISCHARGE Stable. Considered a minimal risk to himself or others, appropriate for outpatient care. DISPOSITION Patient discharged to home. He would continue to follow up with court directives concerning his outpatient sobriety. Patient would abstain from alcohol and all illicit substances. He was given the crisis line should symptoms return. Patient would remain on multivitamin and 1000 mg fish oil daily and, again, abstain from substances. Risks, benefits, and alternatives of the above discharge plan were discussed. Informed consent was given to proceed with above discharge plan by this patient. [facility] present at time discharge. The patient's mother and father are present at time of discharge. [facility]
== END 2018-05-29 09:45 | disposition home or self-care (01) | DRG 897 ==
LOC: BHS 07:39
PROVIDERS: ADMIT Psychiatry & Neurology Psychiatry; ATTEND Psychiatry & Neurology Psychiatry
DX: F14.24 Cocaine dependence with cocaine-induced mood disorder (principal); R45.851 Suicidal ideations; F10.20 Alcohol dependence, uncomplicated; Y90.3 Blood alcohol level of 60-79 mg/100 ml; F15.11 Other stimulant abuse, in remission; Z56.0 Unemployment, unspecified
CPT/HCPCS: 93005